=== PATIENT | male | born 1950 | race Caucasian/White ===

== ENCOUNTER → 2020-11-20 | Outpatient (CLI) | payer OTHER | END | disposition home or self-care (01) | LOC: CT 10:42 | PROVIDERS: ATTEND Nurse Practitioner Family | DX: K80.20 Calculus of gallbladder without cholecystitis without obstruction (principal); K44.9 Diaphragmatic hernia without obstruction or gangrene; J92.9 Pleural plaque without asbestos; K40.90 Unilateral inguinal hernia, without obstruction or gangrene, not specified as recurrent; K57.30 Diverticulosis of large intestine without perforation or abscess without bleeding; Q87.89 Other specified congenital malformation syndromes, not elsewhere classified ==

== ENCOUNTER → 2021-10-14 | Outpatient (CLI) | payer OTHER | END | disposition home or self-care (01) | LOC: CT 09:00 | PROVIDERS: ATTEND Nurse Practitioner Family | DX: K40.90 Unilateral inguinal hernia, without obstruction or gangrene, not specified as recurrent (principal); M43.07 Spondylolysis, lumbosacral region; Q87.89 Other specified congenital malformation syndromes, not elsewhere classified ==

== ENCOUNTER → 2022-09-04 | Outpatient (CLI) | payer MEDICARE ==
[2022-09-04 09:03] LABS: ALKALINE PHOSPHATASE 65 U/L (46-116); BUN 6 mg/dl (9-23); CHLORIDE 105 mmol/L (98-107); POTASSIUM 4.3 mmol/L (3.4-5.1); SGPT/ALT 28 U/L (10-49); TOTAL PROTEIN 7.2 gm/dL (6.0-8.0)
== END | disposition home or self-care (01) ==
LOC: LAB 07:55
PROVIDERS: ATTEND Orthopaedic Surgery
DX: M25.561 Pain in right knee (principal); R53.83 Other fatigue

== ENCOUNTER → 2022-12-05 | Outpatient (CLI) | payer OTHER | END | disposition home or self-care (01) | LOC: CT 01:13 | PROVIDERS: ATTEND Family Medicine | DX: I71.20 Thoracic aortic aneurysm, without rupture, unspecified (principal); J94.8 Other specified pleural conditions; K80.20 Calculus of gallbladder without cholecystitis without obstruction; J98.4 Other disorders of lung; K76.0 Fatty (change of) liver, not elsewhere classified; I70.0 Atherosclerosis of aorta; J43.9 Emphysema, unspecified ==